=== PATIENT | male | born 1960 | race African-American/Black ===

== ENCOUNTER 2022-08-02 22:56 | Observation (INO) ==
[2022-08-02 23:22] LABS: ABS Basophils 0.1 10^3/ul (0-0.2); ABS Eosinophils 0.2 10^3/ul (0-0.6); ABS Monocytes 0.6 10^3/ul (0-0.8); ABS Neutrophils 5.1 10^3/ul (1.5-7.7); Hematocrit 44 % (42-52); Hemoglobin 14.3 g/dL (14.0-18.0); Lymphocyte % 25.6 %; Mean Corpuscular HGB Conc 32 g/dL (31-36); Mean Corpuscular Hemoglobin 28 pg (27-31); Mean Corpuscular Volume 87 fL (80-94); Mean Platelet Volume 8.8 fL (7.4-10.4); Nucleated Red Blood Cells % 0.1; Platelet Count 191 10^3/uL (150-450); Red Blood Count 5.08 10^6 /uL (4.18-5.48); Red Cell Distribution Width 15 % (10-15)
[2022-08-02 23:34] LABS: INR 0.98 (0.89-1.11)
[2022-08-02 23:48] LABS: Albumin 3.9 g/dL (3.2-5.2); Albumin/Globulin Ratio 1.4 (1-3); Calcium 9.1 mg/dL (8.6-10.3); Globulin 2.7 g/dL (2-4); Total Bilirubin 0.4 mg/dL (0.2-1.0); Total Protein 6.6 g/dL (6.4-8.9)
[2022-08-03 00:53] LABS: High Sensitivity Troponin 1 Hr 17 pg/mL (<20)
[2022-08-03] MEDS ORDERED: oxyCODONE/Acetamin 10/325(NF) TAB PO PRN (03:54)
[2022-08-03] MEDS ORDERED: oxyCODONE/Acetamin 5/325 mg TAB PO PRN (04:01)
[2022-08-03] MEDS ORDERED: Dextrose 50% Syringe 50 ml 25 GM/50 ML SYRINGE IV PUSH PRN (04:55)
[2022-08-03 05:19] LABS: HDL Cholesterol 44.8 mg/dL
[2022-08-03] MEDS ORDERED: Enoxaparin 40 MG/0.4 ML SYR SUBCUT SCH (06:00)
[2022-08-03] MEDS ORDERED: AMLODIPINE VALSARTAN PO SCH (09:00)
[2022-08-03] MEDS ORDERED: Aspirin EC 81 mg TAB.EC (enteric coated) PO SCH (09:00)
[2022-08-03] MEDS ORDERED: Regadenoson 0.4 MG/5 ML SYRINGE ONE (10:31)
[2022-08-03] MEDS ORDERED: Aminophylline 25 MG/ML VIAL ONE (10:31)
[2022-08-03 12:26] LABS: Hepatitis C Antibody Negative (Negative)
[2022-08-03 13:13] VITALS: BP 130/80
== END 2022-08-03 14:03 | disposition home or self-care (01) ==
LOC: EDHOLD 22:56 → ED 22:56 → MEDTELE 08-03 06:43
PROVIDERS: ADMIT Internal Medicine; ATTEND Internal Medicine

== ENCOUNTER 2024-01-19 13:52 | Inpatient (IN) ==
[2024-01-19 14:22] LABS: ABS Basophils 0.1 10^3/uL (0.0-0.1); ABS Eosinophils 0.1 10^3/uL (0.0-0.5); ABS Lymphocytes 2.1 10^3/uL (1.0-4.8); ABS Monocytes 0.5 10^3/uL (0.0-1.1); ABS Neutrophils 6.2 10^3/uL (1.5-7.6); ABS Nucleated RBC 0.02 10^3/ul; Eosinophil % 1.3 %; Hematocrit 44.4 % (38-53); Hemoglobin 14.3 g/dL (13.2-16.3); Lymphocyte % 23.2 %; Mean Corpuscular Hemoglobin 28.2 pg (27-33); Mean Corpuscular Hgb Conc 32.2 g/dL (31-36); Mean Corpuscular Volume 87.4 fL (80-97); Mean Platelet Volume 9.8 fL (7.5-11.2); Nucleated Red Blood Cells % 0.2 %/100WBC (0.0-0.8); Platelet Count 200 10^3/uL (150-450); Red Blood Count 5.08 10^6/uL (4.06-5.63); Red Cell Distribution Width 14.8 % (12-17)
[2024-01-19 14:58] LABS: INR 0.95 (0.83-1.13)
[2024-01-19 15:43] LABS: Albumin 3.3 g/dL (3.2-5.2); Calcium 8.2 mg/dL (8.6-10.3); Creatinine, Serum 1.6 mg/dL (0.67-1.17); Globulin 3.3 g/dL (2-4); Potassium 4.5 mmol/L (3.5-5.0); Total Bilirubin 0.6 mg/dL (0.2-1.0); Total Protein 6.6 g/dL (6.4-8.9); eGFR CKD-EPI 47.5 (>60)
[2024-01-19 15:45] LABS: High Sensitivity Troponin 1 Hr 30 pg/mL (<20)
[2024-01-19] MEDS: Lactated Ringers 1000 ml BAG 1,000 ML IV ONE ×2 (15:51)
[2024-01-19 18:41] LABS: Glucose Confirmatory 458 mg/dL (70-100)
[2024-01-19 20:58] LABS: Urine Appearance Clear; Urine Bilirubin Negative (Negative); Urine Blood Negative (Negative); Urine Color Light-Yellow; Urine Glucose 4+ (>=1000 mg/dL) (Negative); Urine Ketones Negative (Negative); Urine Nitrite Negative (Negative); Urine Protein Trace (Negative); Urine Specific Gravity 1.026 (1.002-1.030); Urine Urobilinogen Negative (Negative); Urine pH 5.5 (5.0-8.0)
[2024-01-19] MEDS ORDERED: Dextrose 50% Syringe 50 ml 25 GM/50 ML SYRINGE IV PUSH PRN (21:56)
[2024-01-19] MEDS ORDERED: Albuterol HFA INHALER 8 gm MDI INH PRN (22:12)
[2024-01-19 22:35] LABS: Magnesium 2.1 mg/dL (1.9-2.7)
[2024-01-19 22:51] LABS: TSH Ultra Thyroid Stim Horm 5.05 mcIU/mL (0.34-5.60)
[2024-01-19] MEDS: Insulin GLARGINE 100 un/ml 10 ml VIAL SUBCUT ONE (22:59)
[2024-01-19] MEDS: Enoxaparin 40 MG/0.4 ML SYR SUBCUT SCH (22:59)
[2024-01-19] MEDS: Lactated Ringers 1000 ml BAG 1,000 ML IV SCH (23:00)
[2024-01-19 23:37] LABS: High Sensitivity Troponin 3 Hr 30 pg/mL (<20)
[2024-01-20 02:57] LABS: Urine Benzodiazepine Screen None Detected (None Detect); Urine Cannabinoids Screen None Detected (None Detect); Urine Opiates Screen None Detected (None Detect)
[2024-01-20 06:48] LABS: ABS Basophils 0.2 10^3/uL (0.0-0.1); ABS Eosinophils 0.1 10^3/uL (0.0-0.5); ABS Lymphocytes 2.3 10^3/uL (1.0-4.8); ABS Monocytes 0.5 10^3/uL (0.0-1.1); Eosinophil % 1.8 %; Hematocrit 40.4 % (38-53); Hemoglobin 13.6 g/dL (13.2-16.3); Lymphocyte % 28.1 %; Mean Corpuscular Hemoglobin 28.3 pg (27-33); Mean Corpuscular Hgb Conc 33.6 g/dL (31-36); Mean Corpuscular Volume 84.2 fL (80-97); Mean Platelet Volume 9.5 fL (7.5-11.2); Platelet Count 184 10^3/uL (150-450); Red Cell Distribution Width 14.6 % (12-17); White Blood Count 8.1 10^3/uL (3.6-10.2)
[2024-01-20 07:24] LABS: Calcium 8.3 mg/dL (8.6-10.3); Creatinine, Serum 1.12 mg/dL (0.67-1.17); Potassium 3.8 mmol/L (3.5-5.0); eGFR CKD-EPI 72.9 (>60)
[2024-01-20] MEDS ORDERED: Sulfur Hexaflouride MICROSPHR 25 MG VIAL ONE (10:26)
[2024-01-20] MEDS: Insulin GLARGINE 100 un/ml 10 ml VIAL SUBCUT SCH (21:29)
[2024-01-21 07:31] LABS: ABS Eosinophils 0.2 10^3/uL (0.0-0.5); ABS Lymphocytes 2.3 10^3/uL (1.0-4.8); ABS Monocytes 0.5 10^3/uL (0.0-1.1); ABS Neutrophils 2.8 10^3/uL (1.5-7.6); ABS Nucleated RBC 0.01 10^3/ul; Eosinophil % 2.7 %; Hematocrit 42.3 % (38-53); Lymphocyte % 39.6 %; Mean Corpuscular Hemoglobin 27.9 pg (27-33); Mean Corpuscular Volume 84.4 fL (80-97); Mean Platelet Volume 9.5 fL (7.5-11.2); Nucleated Red Blood Cells % 0.2 %/100WBC (0.0-0.8); Platelet Count 188 10^3/uL (150-450); Red Blood Count 5.01 10^6/uL (4.06-5.63); Red Cell Distribution Width 14.4 % (12-17); White Blood Count 5.9 10^3/uL (3.6-10.2)
[2024-01-21 08:08] LABS: Calcium 8.2 mg/dL (8.6-10.3); Creatinine, Serum 0.85 mg/dL (0.67-1.17); Potassium 3.6 mmol/L (3.5-5.0); eGFR CKD-EPI 96.4 (>60)
[2024-01-21] MEDS: Dexamethasone IV 4 MG/ML VIAL 1 ml VIAL IV SLOW PU ONE (08:43)
[2024-01-21] MEDS ORDERED: AMLODIPINE VALSARTAN PO SCH (09:00)
[2024-01-21] MEDS: Pneumococcal 20-Valent Conj 0.5 ML SYR Vaccine IM ONE (15:39)
[2024-01-21] MEDS: Insulin GLARGINE 100 un/ml 10 ml VIAL SUBCUT SCH (21:00)
[2024-01-22 07:52] LABS: ABS Eosinophils 0.2 10^3/uL (0.0-0.5); ABS Monocytes 0.7 10^3/uL (0.0-1.1); ABS Neutrophils 3.4 10^3/uL (1.5-7.6); ABS Nucleated RBC 0.01 10^3/ul; Eosinophil % 2.6 %; Hematocrit 44.4 % (38-53); Hemoglobin 14.6 g/dL (13.2-16.3); Lymphocyte % 31.7 %; Mean Corpuscular Hemoglobin 27.9 pg (27-33); Mean Corpuscular Hgb Conc 32.8 g/dL (31-36); Mean Corpuscular Volume 84.9 fL (80-97); Mean Platelet Volume 9.5 fL (7.5-11.2); Nucleated Red Blood Cells % 0.2 %/100WBC (0.0-0.8); Platelet Count 188 10^3/uL (150-450); Red Blood Count 5.23 10^6/uL (4.06-5.63); Red Cell Distribution Width 14.1 % (12-17); White Blood Count 6.2 10^3/uL (3.6-10.2)
[2024-01-22 08:09] LABS: Calcium 8.1 mg/dL (8.6-10.3); Creatinine, Serum 0.81 mg/dL (0.67-1.17); Potassium 3.7 mmol/L (3.5-5.0); eGFR CKD-EPI 97.8 (>60)
[2024-01-23] MEDS ORDERED: Regadenoson 0.4 MG/5 ML SYRINGE ONE (08:13)
[2024-01-23] MEDS ORDERED: Aminophylline 25 MG/ML VIAL ONE (08:13)
[2024-01-23 16:15] LABS: Magnesium 1.9 mg/dL (1.9-2.7)
[2024-01-23] MEDS: Insulin GLARGINE 100 un/ml 10 ml VIAL SUBCUT SCH (20:58)
[2024-01-24] MEDS ORDERED: Lidocaine 1% w EPI 1:100,000 MDV 20 ML VIAL ONE (08:55)
[2024-01-24 13:50] VITALS: BP 122/74
== END 2024-01-24 16:15 | disposition home or self-care (01) | DRG 260 ==
LOC: ED 13:52 → EDHOLD 13:52 → SUATTDRO 18:46 → MED 01-20 07:57
PROVIDERS: ADMIT Student in an Organized Health Care Education/Training Program; ATTEND Internal Medicine